=== PATIENT | female | born 1990 | race Hispanic/Latino ===

== ENCOUNTER 2022-07-09 10:37 | Observation (INO) | payer MEDICAID, OTHER ==
[~2022-07-09] VITALS: Ht 170.2 cm; Wt 125.2 kg
[2022-07-09 11:32] LABS: BASOPHILS % (AUTO) 0.4 % (0.0-5.0); EOSINOPHILS % (AUTO) 0.4 % (0.0-8.0); HEMATOCRIT 31.8 % (36-48); LYMPHOCYTES % (AUTO) 20.1 % (21.0-51.0); MEAN CORPUSCULAR HEMOGLOBIN 25.6 pg (27.0-33.0); MEAN CORPUSCULAR HGB CONC 31.4 g/dL (32.0-36.0); MEAN CORPUSCULAR VOLUME 81.3 fL (79-99); MONOCYTES % (AUTO) 4.4 % (3.0-13.0); NEUTROPHILS % (AUTO) 73.9 % (40.0-77.0); PLATELET COUNT (AUTO) 278 K/uL (130-400); RED BLOOD CELL COUNT(AUTO) 3.91 MIL/uL (4.00-5.50); RED CELL DISTRIBUTION WIDTH 15.9 % (11.0-15.5); WHITE BLOOD COUNT (AUTO) 11.1 K/uL (4.8-10.8)
[2022-07-09 11:36] LABS: APPEARANCE,URINE CLEAR (CLEAR); BILIRUBIN,URINE NEGATIVE (NEGATIVE); COLOR,URINE YELLOW (YELLOW); GLUCOSE, URINE (UA) NEGATIVE (NEGATIVE); KETONES,URINE NEGATIVE (NEGATIVE); LEUKOCYTE ESTERASE ,URINE SMALL (NEGATIVE); NITRATE,URINE NEGATIVE (NEGATIVE); OCCULT BLOOD,URINE NEGATIVE (NEGATIVE); PH,URINE 6.5 (5.0-8.0); PROTEIN,URINE NEGATIVE (NEGATIVE); UROBILINOGEN,URINE 0.2 mg/dL (0.2-1.0)
[2022-07-09 11:50] LABS: ALBUMIN 2.9 g/dL (3.5-5.0); CREATININE 0.6 mg/dL (0.5-1.5); POTASSIUM 4.1 mmol/L (3.5-5.1); TOTAL PROTEIN, SERUM 7.2 g/dL (6.0-8.3); URIC ACID 4.2 mg/dL (2.6-7.2)
[2022-07-09 11:54] LABS: BACTERIA,URINE Rare /HPF (None Seen); RBC,URINE 0-1 /HPF (0-1); SQUAMOUS EPITHELIAL CELL,UR Rare /HPF (0-2)
[2022-07-09 12:16] LABS: INR 0.93 (0.85-1.15); PROTHROMBIN TIME 9.8 SEC (9.6-11.6)
[2022-07-09 12:17] LABS: PARTIAL THROMBOPLASTIN TIME 25.3 SEC (26.3-35.5)
== END 2022-07-09 12:35 | disposition home or self-care (01) ==
LOC: EDH 10:37 → LDH 10:38
PROVIDERS: ADMIT Obstetrics & Gynecology; ATTEND Obstetrics & Gynecology
DX: O26.893 Other specified pregnancy related conditions, third trimester (principal); R03.0 Elevated blood-pressure reading, without diagnosis of hypertension; R10.9 Unspecified abdominal pain; O99.891 Other specified diseases and conditions complicating pregnancy; M54.9 Dorsalgia, unspecified; Z3A.37 37 weeks gestation of pregnancy
CPT/HCPCS: 84550; 80053; 85025; 85384; 85610; 85730; 81001; 36415; 76805; G0378 ×2; G0379; A4351

== ENCOUNTER 2022-07-16 04:35 | Inpatient (IN) | payer MEDICAID ==
[~2022-07-16] VITALS: Ht 170.2 cm; Wt 124.7 kg
[2022-07-16] MEDS ORDERED: LACTATED RINGERS 1000ML 1,000 ML IV SCH (05:00)
[2022-07-16 05:35] LABS: HEMATOCRIT 30.5 % (36-48); MEAN CORPUSCULAR HEMOGLOBIN 25.8 pg (27.0-33.0); MEAN CORPUSCULAR HGB CONC 32.1 g/dL (32.0-36.0); MEAN CORPUSCULAR VOLUME 80.3 fL (79-99); RED BLOOD CELL COUNT(AUTO) 3.8 MIL/uL (4.00-5.50); RED CELL DISTRIBUTION WIDTH 16.4 % (11.0-15.5); WHITE BLOOD COUNT (AUTO) 11.2 K/uL (4.8-10.8)
[2022-07-16] MEDS ORDERED: OXYTOCIN-LR 20 UNITS/1000 ML 1,000 ML IV SCH ×3 (06:30→17:30)
[2022-07-16] MEDS ORDERED: LACTATED RINGERS 1000ML 1,000 ML IV PRN (06:30)
[2022-07-16] MEDS ORDERED: PROMETHAZINE HCL 25 MG/ML 1ML AMPULE IM PRN (07:00)
[2022-07-16] MEDS ORDERED: LACTATED RINGERS 500 ML 500 ML IV PRN (07:00)
[2022-07-16] MEDS ORDERED: MEPERIDINE-PF 50 MG/ML SYG IVP PRN (07:00)
[2022-07-16] MEDS ORDERED: NALOXONE HCL 0.4 MG/1 ML ML IV PRN (07:00)
[2022-07-16] MEDS ORDERED: EPHEDRINE SULFATE 50 MG/ML AMPULE IVP PRN (07:00)
[2022-07-16 10:13] LABS: RAPID PLASMA REAGIN NONREACTIVE (NONREACTIVE)
[2022-07-16] MEDS ORDERED: LANOLIN 30GM OINTMENT TP PRN (17:30)
[2022-07-16] MEDS ORDERED: BENZOCAINE/LANOLIN/ALOE VERA 60 ML AEROSOL TP PRN (17:30)
[2022-07-16] MEDS ORDERED: ACETAMINOPHEN WITH CODEINE 1 TAB TAB PO PRN (17:30)
[2022-07-16] MEDS ORDERED: WITCH HAZEL 1 PAD TP PRN (17:30)
[2022-07-16] MEDS ORDERED: ACETAMINOPHEN 325 MG TAB PO PRN (17:30)
[2022-07-16] MEDS ORDERED: MEASLES/MUMPS/RUBELLA VACCINE, LIVE 0.5 ML/VIAL SQ PRN (17:30)
[2022-07-16] MEDS: IBUPROFEN 600 MG TABLET PO PRN (19:39)
[2022-07-16 20:13] VITALS: BP 135/82
[2022-07-16] MEDS: DOCUSATE SODIUM 100 MG CAP PO SCH (20:27)
[2022-07-16 22:38] VITALS: BP 129/80
[2022-07-16] MEDS ORDERED: PREN-67 PO (23:25)
[2022-07-17 02:45] VITALS: BP 111/68
[2022-07-17 06:35] LABS: HEMATOCRIT 25.6 % (36-48); MEAN CORPUSCULAR HEMOGLOBIN 25.8 pg (27.0-33.0); MEAN CORPUSCULAR HGB CONC 31.6 g/dL (32.0-36.0); MEAN CORPUSCULAR VOLUME 81.5 fL (79-99); RED BLOOD CELL COUNT(AUTO) 3.14 MIL/uL (4.00-5.50); RED CELL DISTRIBUTION WIDTH 16.3 % (11.0-15.5); WHITE BLOOD COUNT (AUTO) 11.8 K/uL (4.8-10.8)
[2022-07-17] MEDS: IBUPROFEN 600 MG TABLET PO PRN ×2 (06:36→13:50)
[2022-07-17 06:47] VITALS: BP 119/71
[2022-07-17] MEDS: DOCUSATE SODIUM 100 MG CAP PO SCH (07:53)
[2022-07-17 11:30] VITALS: BP 121/71
[2022-07-17 16:05] VITALS: BP 130/82
== END 2022-07-17 17:30 | disposition home or self-care (01) | DRG 560 ==
LOC: EDH 04:35 → OBSVTOIN 04:36 → LDH 04:36 → WSH 20:00
PROVIDERS: ADMIT Obstetrics & Gynecology; ATTEND Obstetrics & Gynecology
PROC: 10E0XZZ Delivery of Products of Conception, External Approach (ICD-10-PCS; principal; 2022-07-16)
PROC: 0UQMXZZ Repair Vulva, External Approach (ICD-10-PCS; 2022-07-16)
DX: O99.214 Obesity complicating childbirth (principal); Z37.0 Single live birth; E66.01 Morbid (severe) obesity due to excess calories; O71.82 Other specified trauma to perineum and vulva; Z3A.39 39 weeks gestation of pregnancy
CPT/HCPCS: 36415; 85027; 86592; 86701; 86850; 86900; 86901; 87340; 87390; A4314; G0378; J2590; J7120

== ENCOUNTER 2022-09-11 07:20 | Day surgery (SDC) | payer MEDICAID ==
[2022-09-09 11:20] LABS: BASOPHILS % (AUTO) 0.4 % (0.0-5.0); EOSINOPHILS % (AUTO) 2.7 % (0.0-8.0); HEMATOCRIT 37.2 % (36-48); LYMPHOCYTES % (AUTO) 34.7 % (21.0-51.0); MEAN CORPUSCULAR HEMOGLOBIN 25.4 pg (27.0-33.0); MEAN CORPUSCULAR HGB CONC 31.5 g/dL (32.0-36.0); MEAN CORPUSCULAR VOLUME 80.9 fL (79-99); MONOCYTES % (AUTO) 4.9 % (3.0-13.0); NEUTROPHILS % (AUTO) 57.1 % (40.0-77.0); PLATELET COUNT (AUTO) 320 K/uL (130-400); RED CELL DISTRIBUTION WIDTH 16.5 % (11.0-15.5); WHITE BLOOD COUNT (AUTO) 8.2 K/uL (4.8-10.8)
[2022-09-10 09:26] VITALS: BP 131/83
[2022-09-11] VITALS (19 sets, daily range): BP systolic 102–135; BP diastolic 57–75
[~2022-09-11] VITALS: Ht 170.2 cm; Wt 119.4 kg
[~2022-09-11 07:20] MED LIST: CEFAZOLIN SODIUM 1 GM VIAL IVP SCH
[2022-09-11] MEDS ORDERED: BUPIVACAINE/PF 0.25% 30ML VIAL IJ ONE (07:35)
[2022-09-11] MEDS ORDERED: LACTATED RINGERS 1000ML 1,000 ML IV ONE (08:00)
[2022-09-11] MEDS ORDERED: PROPOFOL 10 MG/ML 20ML VIAL IV ONE (08:38)
[2022-09-11] MEDS ORDERED: ROCURONIUM 10MG/1ML SYR 10 MG/ML ML ONE ×2 (08:38→09:48)
[2022-09-11] MEDS ORDERED: LIDOCAINE PF 100MG/5ML (2%) SYRINGE 5ML ONE (08:38)
[2022-09-11] MEDS ORDERED: FENTANYL CITRATE PF 50 MCG/1 ML 2ML VIAL ONE ×2 (08:38→10:51)
[2022-09-11] MEDS ORDERED: GLYCOPYRROLATE 1 MG/5 ML SYRINGE ONE (08:38)
[2022-09-11] MEDS ORDERED: BUPIVACAINE/PF 0.5% 30ML VIAL INJ ONE (09:52)
[2022-09-11] MEDS ORDERED: ONDANSETRON 4MG INJ ONE (09:59)
[2022-09-11] MEDS ORDERED: NEOSTIGMINE 5MG/5ML SYR IV ONE (10:16)
[2022-09-11] MEDS ORDERED: MEPERIDINE-PF 25 MG/ML SYG ONE ×2 (10:36→10:43)
== END 2022-09-11 13:05 | disposition home or self-care (01) ==
LOC: DAH 07:20
PROVIDERS: ATTEND Obstetrics & Gynecology
DX: Z30.2 Encounter for sterilization (principal); Z20.822 Contact with and (suspected) exposure to COVID-19; J45.909 Unspecified asthma, uncomplicated; E66.9 Obesity, unspecified; F41.9 Anxiety disorder, unspecified; F32.A Depression, unspecified; Z79.899 Other long term (current) drug therapy; Z98.890 Other specified postprocedural states; Z88.2 Allergy status to sulfonamides; Z88.8 Allergy status to other drugs, medicaments and biological substances
CPT/HCPCS: 84703; 85025; 86850; 86900; 86901; 87426; 36415; 58670; 88302; A6260; J7030; A4351; A4606; J7120; J3010 ×2; J0690; J3490 ×3; J2710; S0020 ×2; J2405; J2175 ×2; C1769 ×3; G0168; A4215 ×2; A4223; A4222; A4221; A4663; A4600; J2001; J2704

== ENCOUNTER 2024-02-03 19:51 | Emergency (ER) | payer MEDICAID, OTHER ==
[~2024-02-03] VITALS: Ht 170.2 cm; Wt 88.9 kg
[2024-02-03 21:23] VITALS: BP 117/70; PULSE 87; RESP 20
== END 2024-02-04 02:15 | disposition left against medical advice (07) ==
LOC: EDH 19:51
DX: L02.414 Cutaneous abscess of left upper limb (principal); Z53.21 Procedure and treatment not carried out due to patient leaving prior to being seen by health care provider
CPT/HCPCS: 99281